=== PATIENT | male | born 1960 | race Caucasian/White ===

== ENCOUNTER 2018-10-16 06:21 | Emergency (ER) | payer OTHER ==
[2018-10-16] MEDS ORDERED: Morphine 4 MG/ML VIAL ONE (06:49)
[2018-10-16] MEDS ORDERED: Sodium Chloride 0.9% 1,000 ML ONE (06:49)
[2018-10-16] MEDS ORDERED: Ondansetron PF 4 MG/2 ML Vial ONE (06:49)
[2018-10-16 06:55] LABS: #Eosinphils 0.4 thou/uL (0.0-0.7); #Monocytes 0.5 thou/uL (0.11-0.59); #Neutrophils 3.8 thou/uL (1.40-6.50); %Basophils 0.7 % (0.0-1.0); %Eosinophils 6.5 % (0.0-10.0); %Lymphocytes 29.5 % (21.0-51.0); %Monocytes 7.6 % (0.0-10.0); %Neutrophils 55.7 % (42.0-75.0); Mean Corpuscular HGB CONC 33.1 g/dL (32.0-36.0); Mean Corpuscular Hemoglobin 27.8 pg (27.0-31.0); Mean Corpuscular Volume 83.9 fL (78.0-98.0); Mean Platelet Volume 11.2 fL (7.4-10.4); Platelet Count 183 thou/uL (130-400); Red Blood Cell (RBC) Count 5.38 mill/uL (4.70-6.10); White Blood Cell (WBC) Count 6.8 thou/uL (4.8-10.8)
[2018-10-16 07:10] LABS: ALT (SGPT) 22 U/L (8-55); AST (SGOT) 17 U/L (5-34); Albumin 4.4 g/dL (3.5-5.0); Alkaline Phosphatase 98 U/L (40-150); Anion Gap 14 mmol/L (10-20); BUN (Urea Nitrogen) 16 mg/dL (8.4-25.7); Bilirubin, Total 1.1 mg/dL (0.2-1.2); Calc. Creatinine Clearance 0 mL/min (70-130); Calcium 9.8 mg/dL (7.8-10.44); Carbon Dioxide 26 mmol/L (22-29); Chloride 105 mmol/L (98-107); Estimated GFR-MDRD Greater than 90; Globulin 3.1 g/dL (2.4-3.5); Glucose 97 mg/dL (70-105); Lipase 39 U/L (8-78); Potassium 4.6 mmol/L (3.5-5.1); Protein, Total 7.5 g/dL (6.0-8.3); Sodium 140 mmol/L (136-145)
[2018-10-16 07:13] LABS: Bilirubin Negative (Negative); Clarity Clear (Clear); Glucose, Urine (Dipstick) Negative (Negative); Leukocyte Negative (Negative); Nitrite Negative (Negative); Protein, Urine (Dipstick) Negative (Neg-Trace); Urobilinogen 0.2 mg/dL (0.2-1.0)
[2018-10-16 07:17] LABS: Blood, Urine Negative (Negative)
--- NOTE | 2018-10-16 08:10 | CT ---
CT ABDOMEN WITH CONTRAST: CT PELVIS WITH CONTRAST: HISTORY: Right lower quadrant pain since last night. COMPARISON: None. FINDINGS: ABDOMEN: Minimal dependent atelectatic changes. Nonspecific calcified right perihilar lymph nodes. At the moment, the portal vein is patent. The liver, spleen, pancreas, and adrenal glands have appr opriate enhancement. Unremarkable gallbladder. Symmetric enhancement of the kidneys. Bilateral ext rarenal pelves are noted. Bilaterally, no obstructive uropathy. No gastrohepatic, retrocrural, or p eriportal lymphadenopathy. No mesenteric mass, lymphadenopathy, free air, or free fluid. Limited ev aluation of the alimental canal due to lack of oral contrast administration. No evidence of small taj wel obstruction. 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 Normal caliber appendix. Scattered fecal material in a nondistended, nondilated colon. Occ asional diverticulum. No diverticulitis. PELVIS: No mass, lymphadenopathy, free air, or free fluid. Unremarkable urinary bladder. No lytic or blastic lesions in the osseous structures. IMPRESSION: No acute abnormality in the abdomen or pelvis. POS: [facility]
[2018-10-16] MEDS ORDERED: Iopamidol 370 76% 100 ML VIAL ONE (09:00)
== END 2018-10-16 08:39 | disposition home or self-care (01) ==
LOC: NAV ERS 06:21
DX: R10.31 Right lower quadrant pain (principal); I10 Essential (primary) hypertension; Z79.899 Other long term (current) drug therapy
CPT/HCPCS: 74177; 80053; 81003; 83690; 85025; 96361; 96374; 96375; J2270; J2405; J7050; Q9967